=== PATIENT | male | born 1980 | race African-American/Black ===

== ENCOUNTER → 2023-06-07 | Emergency (ER) | payer SELFPAY ==
[~2023-06-07] VITALS: Ht 162.6 cm; Wt 79.4 kg
[~2023-06-07] MED LIST: IBUP-2029 MT
[2023-06-07 12:14] VITALS: BP 0/0; PULSE 110; RESP 16; TEMP 98.6; O2SAT 96
== END ==
LOC: ER 17:55
DX: S60.222A Contusion of left hand, initial encounter (principal); X58.XXXA Exposure to other specified factors, initial encounter; Y93.89 Activity, other specified; Y92.89 Other specified places as the place of occurrence of the external cause; Y99.8 Other external cause status
CPT/HCPCS: 73130; 99283; Z7610